=== PATIENT | male | born 1985 | race African-American/Black ===

== ENCOUNTER 2023-01-08 23:18 | Emergency (ER) | payer SELFPAY ==
[2023-01-08 23:24] VITALS: BP 132/78; PULSE 88; RESP 18; TEMP 98.5; BMI 33.2
[2023-01-09] MEDS ORDERED: ACETAMINOPHEN 500 MG TABLET (FP) PO ONE (00:22)
[2023-01-09] MEDS ORDERED: IBUPROFEN 600 MG TABLET (FP) PO ONE ×2 (00:22→00:27)
[2023-01-09] MEDS ORDERED: ACETAMINOPHEN 500 MG TABLET (FP) ONE (00:27)
== END 2023-01-09 00:37 | disposition home or self-care (01) ==
LOC: JERFT 23:18
DX: F41.9 Anxiety disorder, unspecified (principal); Z76.0 Encounter for issue of repeat prescription
CPT/HCPCS: 99281-25